=== PATIENT | female | born 1990 | race Caucasian/White ===

== ENCOUNTER 2018-12-29 13:30 | Emergency (ER) | payer OTHER ==
[2018-12-29] MEDS: predniSONE 20 MG TAB PO (14:37)
[2018-12-29] MEDS: ALBUTEROL 0.083% (NEB) 2.5 MG/3 ML AMP NEB (14:52)
[2018-12-29] MEDS: IPRATROPIUM (NEB) 0.5 MG/2.5 ML AMP NEB (14:52)
== END 2018-12-29 15:29 | disposition home or self-care (01) ==
LOC: FTE 13:30
DX: R05 Cough (principal); Z87.891 Personal history of nicotine dependence
CPT/HCPCS: 94664; 99283-25